=== PATIENT | male | born 1955 | race Caucasian/White ===

== ENCOUNTER 2016-05-24 01:32 | Emergency (ER) | payer MEDICAID, OTHER ==
[~2016-05-24] VITALS: Ht 185.4 cm; Wt 85.0 kg
[~2016-05-24 01:32] MED LIST: CYCL1PAK PO; GABA300 PO; HYDR-4197 PO; LISI20 PO; LORTA5 PO; METO50TA PO; NOVO7030P2 SQ; NRSS SQ
[2016-05-24 01:49] VITALS: BP 145/79; PULSE 93; RESP 18; TEMP 98.1; O2SAT 94
[2016-05-24] MEDS ORDERED: METO-426 PO (02:00)
[2016-05-24] MEDS ORDERED: NOVO7030P2 SQ (02:00)
[2016-05-24] MEDS ORDERED: NOVORP2 SQ (02:00)
[2016-05-24] MEDS ORDERED: GABA300C5 PO (02:00)
[2016-05-24] MEDS ORDERED: METF1000 PO (02:00)
[2016-05-24] MEDS ORDERED: TETANUS/DIPHTHERIA TOXOID ADULT 0.5 ML VIAL IM ONE (02:15)
--- NOTE | 2016-05-24 02:29 | PD ---
HPI Chief Complaint: Injury Time Seen by Provider: 02:26 Travel History International Travel<30 days: No Contact w/Intl Traveler<30days: No Traveled to known affect area: No History of Present Illness HPI Patient comes in for medical clearance under police escort after injuring his first and second toe on his right lower extremity while at the police station. Patient reports he was arrested for DUI and was upset because no one would take him to the bathroom and kicked the wall injuring his foot. Patient uncertain of his last tetanus shot. Patient reports pain in his first and second second digit right lower extremity radiates proximally. He states he is not taking his home medications approximately 3 weeks because he cannot afford them. PFSH Past Medical History Arthritis: Yes Cancer: No Diabetes: Yes Patient Takes Glucophage: Yes Genitourinary: Yes Hypertension: Yes Musculoskeletal: Yes Psychiatric: No Reproductive: No Respiratory: No Immunizations Current: Yes Migraines: Yes Tetanus Vaccination: > 5 Years Influenza Vaccination: No Past Surgical History Surgical History: No Previous Surgery Abdominal Surgery: Yes (hernia repair) Cardiac Surgery: Yes (angiogram) Other Surgery: Yes Social History Alcohol Use: Yes Tobacco Use: No (quit in past two weeks) Substance Use: Yes (marijuana) Allergies-Medications (Allergen,Severity, Reaction): Coded Allergies: No Known Allergies (Unverified , 05/24/16) Reported Meds & Prescriptions Reported Meds & Active Scripts Active Keflex (Cephalexin) 500 Mg Cap 500 Mg PO Q12H 7 Days Reported Metformin (Metformin HCl) 1,000 Mg Tab 1,000 Mg PO BIDPC With meals Gabapentin 300 Mg Cap 300 Mg PO TID Novolin R Inj (Insulin Human Regular) 1,000 Unit/10 Ml Vial 1-9 Units SQ ACHS Max dose at bedtime:( )units; sugars less than 70,(0) units; sugars 150-199,(1)unit; sugars 200-249,(3)units; sugars 250-299,(5) units; sugars 300-349,(7)units; sugars greater than 349,(9)units Novolin 70-30 Inj (Insulin Human Isoph/Insulin Regular) 1,000 Unit/10 Ml Vial 35 Units SQ BID Metoprolol Tartrate 75 Mg Tab 75 Mg PO BID Review of Systems Except as stated in HPI: all other systems reviewed are Neg Physical Exam Narrative GENERAL: Well-developed, well nourished, in no acute distress, and non-ill appearing. SKIN: Warm and dry. Dry blood noted around right great toenail. HEAD: Atraumatic. Normocephalic. EYES: Pupils equal and round. EOMI. No scleral icterus. No injection or drainage. ENT: No nasal bleeding or discharge. Mucous membranes pink and moist. NECK: Trachea midline. Supple. No nuclear rigidity. CARDIOVASCULAR: Dorsal pulses 2+ and intact. Capillary refill less than 2 seconds. RESPIRATORY: No accessory muscle use. No respiratory distress. MUSCULOSKELETAL: No obvious deformities. No clubbing. No cyanosis. No edema. Full range of motion. Patient reports tenderness to palpation over right great toe and second toe as well as first metacarpal. Denies any pain anywhere else throughout the foot to palpation. NEUROLOGICAL: Awake and alert. No obvious cranial nerve deficits. Motor grossly within normal limits. Normal speech. PSYCHIATRIC: Appropriate mood and affect. Data Data Last Documented VS Vital Signs Date Time Temp Pulse Resp B/P Pulse Ox O2 Delivery O2 Flow Rate FiO2 05/24/16 03:09 154/86 05/24/16 03:08 92 18 100 Room Air 05/24/16 01:49 98.1 Orders Foot, Complete ([id number]) (05/24/16 ) Tetanus/Diphtheria Tox Adult (Tetanus/Di (05/24/16 02:15) Splint Or Brace Apply/Monitor (05/24/16 02:50) MDM Medical Decision Making Medical Screen Exam Complete: Yes Emergency Medical Condition: Yes Differential Diagnosis Fracture, sprain, avulsed toenail, partially avulsed toenail, other Narrative Course Suspect a questionable fracture by the radiologist as old or possible vasculature as this is not near were patient injured his foot patient has no pain to palpation, edema, or discoloration. I discussed this with Dr. Rivera who is in agreement with plan of care and disposition. Patient in no obvious distress upon re-evaluation. All pertinent Radiology result(s) discussed with patient. Patient was asked if they wanted to speak to my attending, which the patient did not wish to do at this time. Any questions/ concerns in reference to patient diagnosis/condition discussed and clarified prior to patient's discharge. Reinforced sheer importance of close follow up with patient's primary physician or primary care clinic and vp of customer experience strategy. Instructed patient to return to ED immediately, if symptoms return/worsen. Pt showed understanding of above instructions. Further instructions and recommendations were detailed in discharge paperwork. Pt ambulated without difficulty out of ED at discharge in police custody. Procedures Procedure Narrative Consent was obtained. Toenail was cleaned and irrigated with copious amount of normal saline. Sterile dressing was applied. Patient tolerated procedure well. There is no complications. Diagnosis Primary Impression: Injury of toenail of right foot Qualified Code: S99.921A - Injury of toenail of right foot, initial encounter Referrals: Ez Ortega DPM Patient Instructions: General Instructions Additional Instructions: Follow-up with your primary care physician and vp of customer experience strategy this week. Take all medication as prescribed. Wear postop shoe for comfort. Return to the emergency department if symptoms get worse. Med/Other Pt SpecificInfo: Prescription(s) given Scripts Cephalexin (Keflex)500 Mg Isa552 Mg PO Q12H 7 Days Ref 0 Prov:Gena Rivera MD 05/24/16 Disposition: 01 DISCHARGE HOME Condition: Stable Frankie Lomeli May 24, 2016 02:29
--- NOTE | 2016-05-24 02:38 | RADRPT ---
EXAM DATE/TIME: 05/24/2016 02:03 [facility] COMPARISON: No previous studies available for comparison. INDICATIONS : Right foot pain from trauma sustained in a repeated kicking action. MEDICAL HISTORY : None. SURGICAL HISTORY : None. ENCOUNTER: Initial ACUITY: 1 day PAIN SCORE: 7/10 LOCATION: Right foot FINDINGS: Three view examination of the right foot has been performed. On the oblique view, there is a vertical lucency through the proximal aspect of the fourth proximal phalanx extending to the MCP joint concer paulette for a nondisplaced fracture. This is not seen on the other views. No other possible fractures ar e seen. CONCLUSION: Suspected nondisplaced fracture of the proximal aspect of the fourth proximal phalanx. Kaz Delarosa MD on May 24, 2016 at 2:35 Board Certified Radiologist. This report was verified electronically.
[2016-05-24] MEDS ORDERED: CEPH-460 PO (02:50)
[2016-05-24 03:08] VITALS: PULSE 92; RESP 18; O2SAT 100
[2016-05-24 03:09] VITALS: BP 154/86
== END 2016-05-24 03:34 | disposition home or self-care (01) ==
LOC: NEPE 01:32
DX: S99.921A Unspecified injury of right foot, initial encounter (principal); W22.01XA Walked into wall, initial encounter; Z23 Encounter for immunization
CPT/HCPCS: 73630; 90471; 90714; 99283; L3260